=== PATIENT | female | born 1995 | race Caucasian/White ===

== ENCOUNTER 2016-11-08 17:55 | Emergency (ER) | payer OTHER, SELFPAY ==
[2016-11-08] MEDS ORDERED: Sodium Chloride 0.9% 1000 ML 1,000 ML IV STA (18:04)
[2016-11-08 18:05] VITALS: BP 127/71; PULSE 94; O2SAT 96
[2016-11-08] MEDS ORDERED: Sodium Chloride 0.9% 1000 ML 1,000 ML ONE (18:18)
--- NOTE | 2016-11-08 18:20 | ERPHSYRPT ---
- History of Present Illness Time Seen by Provider: 11/08/16 18:18 Historian: patient Exam Limitations: no limitations Patient Subjective Stated Complaint: abd pain for two days Triage Nursing Assessment: to room per self without difficulty. skin w/d, normal color. holding lower abd. bowel sounds normal. denies diarrhea. does have some nausea. Physician History: 21-year-old female came to the emergency room with complaining of left lower quadrant abdominal pains. She denies any nausea vomiting diarrhea or constipation. Her last menstrual period was last month. In the middle of the month. She denies any vagina bleeding. She also denies any urinary complaints. Timing/Duration: yesterday Activities at Onset: none Quality: cramping Abdominal Pain Onset Location: LLQ Pain Radiation: no radiation Severity of Pain-Max: mild Severity of Pain-Current: mild Modifying Factors: Improves With: nothing Associated Symptoms: denies symptoms Allergies/Adverse Reactions: No Known Drug Allergies Allergy (Verified 11/08/16 18:05) Hx Tetanus, Diphtheria Vaccination/Date Given: No Hx Influenza Vaccination/Date Given: No Hx Pneumococcal Vaccination/Date Given: No - Review of Systems Constitutional: No Fever, No Chills Eyes: No Symptoms Ears, Nose, & Throat: No Symptoms Respiratory: No Cough, No Dyspnea Cardiac: No Chest Pain, No Edema, No Syncope Abdominal/Gastrointestinal: Abdominal Pain (Left lower quadrant.), No Nausea, No Vomiting, No Diarrhea Genitourinary Symptoms: No Dysuria Musculoskeletal: No Back Pain, No Neck Pain Skin: No Rash Neurological: No Dizziness, No Focal Weakness, No Sensory Changes Psychological: No Symptoms Endocrine: No Symptoms All Other Systems: Reviewed and Negative - Past Medical History Pertinent Past Medical History: Yes Psycho-Social History: Depression - Past Surgical History Past Surgical History: Yes Female Surgical History: Section - Social History Smoking Status: Current some day smoker How long have you smoked: 1 Exposure to second hand smoke: Yes Drug Use: marijuana Patient Lives Alone: No - Female History Hx Last Menstrual Period: 10/21/16 - Nursing Vital Signs Nursing Vital Signs: Initial Vital Signs Temperature 98.3 F Temperature Source Oral Pulse Rate 94 Respiratory Rate 16 Blood Pressure [Right Arm] 127/71 Pain Intensity 7 - Physical Exam General Appearance: no apparent distress, alert Eye Exam: PERRL/EOMI, eyes nml inspection Ears, Nose, Throat Exam: normal ENT inspection, pharynx normal, moist mucous membranes Neck Exam: normal inspection, non-tender, supple, full range of motion Respiratory Exam: normal breath sounds, lungs clear, No respiratory distress Cardiovascular Exam: regular rate/rhythm, normal heart sounds Gastrointestinal/Abdomen Exam: soft, tenderness (minimal left lower quadrant tenderness), No mass Back Exam: normal inspection, normal range of motion, No CVA tenderness, No vertebral tenderness Extremity Exam: normal inspection, normal range of motion, pelvis stable Neurologic Exam: alert, oriented x 3, cooperative, normal mood/affect, nml cerebellar function, sensation nml, No motor deficits Skin Exam: normal color, warm, dry SpO2: 96 Oxygen Delivery: Room Air - Course Nursing assessment & vital signs reviewed: Yes Ordered Tests: Active Orders 24 hr Category Date Time Status AMYLASE Stat Lab 11/08/16 18:19 Completed CBC W DIFF Stat Lab 11/08/16 18:19 Completed CMP Stat Lab 11/08/16 18:19 Completed HCG QUALITATIVE,SERUM Stat Lab 11/08/16 18:20 Completed HCG,QUALITATIVE URINE Stat Lab 11/08/16 18:04 Uncollected LIPASE Stat Lab 11/08/16 18:19 Completed UA Stat Lab 11/08/16 18:55 Received Urine Triage Profile Stat Lab 11/08/16 18:55 Received Medication Summary Discontinued Medications Generic Name Dose Route Start Last Admin Trade Name Beth PRN Reason Stop Dose Admin Sodium Chloride 1,000 mls @ 999 mls/hr 11/08/16 18:04 11/08/16 18:21 Sodium Chloride 0.9% 1000 Ml IV 11/08/16 19:04 999 mls/hr .Q1H1M STA Administration Sodium Chloride Confirm 11/08/16 18:18 Sodium Chloride 0.9% 1000 Ml Administered 11/08/16 18:19 Dose 1,000 mls @ ud .ROUTE .[facility] Lab/Rad Data: Laboratory Result Diagrams 11/08/16 18:19 11/08/16 18:19 Laboratory Results 11/08/16 11/08/16 11/08/16 Range/Units 18:20 18:19 18:19 WBC 8.1 (4.0-10.5) K/mm3 RBC 4.71 (4.1-5.4) M/mm3 Hgb 14.1 (12.0-16.0) gm/dl Hct 42.3 (35-47) % MCV 89.8 (78-100) fl MCH 29.9 (26-32) pg MCHC 33.3 (32-36) g/dl RDW 12.8 (11.5-14.0) % Plt Count 259 (150-450) K/mm3 MPV 10.4 H (6-9.5) fl Gran % 71.1 H (36.0-66.0) % Lymphocytes % 17.3 L (24.0-44.0) % Monocytes % 7.9 (0.0-12.0) % Eosinophils % 3.3 (0.00-5.0) % Basophils % 0.4 (0.0-0.4) % Basophils # 0.03 (0-0.4) Sodium 143 (136-145) mEq/L Potassium 3.8 (3.5-5.1) mEq/L Chloride 106 (98-107) mEq/L Carbon Dioxide 26.0 (21-32) mEq/L Anion Gap 14.8 (5-15) MEQ/L BUN 10 (9-20) mg/dL Creatinine 0.77 (0.55-1.30) mg/dl Estimated GFR > 60 ML/MIN Glucose 118 H (70-110) MG/DL Calcium 9.1 (8.5-10.1) mg/dL Total Bilirubin 0.4 (0.2-1.0) mg/dL AST 25 (15-37) U/L ALT 42 (12-78) U/L Alkaline Phosphatase 49 (46-116) U/L Serum Total Protein 7.2 (6.4-8.2) gm/dL Albumin 3.9 (3.4-5.0) g/dL Amylase 41 (25-115) U/L Lipase 159 (73-393) U/L Serum , Qual NEGATIVE (Negative) - Progress Progress: improved Counseled pt/family regarding: lab results, diagnosis, need for follow-up - Departure Time of Disposition: 18:52 Departure Disposition: Home Clinical Impression: Abdominal pain in female patient Condition: Stable Critical Care Time: No Referrals: SANDIP MEZA [Primary Care Provider] - Instructions: Abdominal Pain-Adult Additional Instructions: ABDOMINAL PAIN 1. There are several different causes for abdominal pain, some of which may not be able to be identified on initial examination. 2. The important thing to remember is that bodily functions can change in a short period of time. If you notice any of the following symptoms, return to the emergency department or consult your doctor immediately: A. Worsening pain or no improvement in the next 12 hours. B. Increasing, severe abdominal pain C. Blood in stool D. Black stools E. Persistent vomiting F. Fever or chills or other symptoms Follow-up with your primary care physician tomorrow. Forms: Work/School Release Form
[2016-11-08 18:22] LABS: BASOPHIL % 0.4 % (0.0-0.4); Eosinophil % 3.3 % (0.00-5.0); Granulocytes % 71.1 % (36.0-66.0); Lymphocytes % 17.3 % (24.0-44.0); Mean Cell Volume 89.8 fl (78-100); Mean Corpuscular Hemoglobin 29.9 pg (26-32); Mean Platelet Volume 10.4 fl (6-9.5); Monocytes % 7.9 % (0.0-12.0); Platelet Count 259 K/mm3 (150-450); Red Blood Count 4.71 M/mm3 (4.1-5.4); Red Cell Distribution Width 12.8 % (11.5-14.0); White Blood Count 8.1 K/mm3 (4.0-10.5)
[2016-11-08 18:40] LABS: ALBUMIN 3.9 g/dL (3.4-5.0); ALKALINE PHOSPHATASE 49 U/L (46-116); ANION GAP 14.8 MEQ/L (5-15); BILIRUBIN,TOTAL 0.4 mg/dL (0.2-1.0); BLOOD UREA NITROGEN 10 mg/dL (9-20); CHLORIDE 106 mEq/L (98-107); Glucose 118 MG/DL (70-110); LIPASE 159 U/L (73-393); Potassium 3.8 mEq/L (3.5-5.1); SGOT/AST 25 U/L (15-37); SGPT/ALT 42 U/L (12-78); SODIUM 143 mEq/L (136-145); Total Protein 7.2 gm/dL (6.4-8.2)
[2016-11-08 19:11] LABS: COMPLETE URINE MICROSCOPIC? NO; Collection Type CLEAN CATCH
== END 2016-11-08 19:20 | disposition home or self-care (01) ==
LOC: ED 17:55
DX: R10.32 Left lower quadrant pain (principal)
CPT/HCPCS: 36000; 36415; 80053; 80307; 81002; 82150; 83690; 84703; 85025; 96360; 99283; 99284

== ENCOUNTER 2017-07-17 19:15 | Emergency (ER) | payer OTHER ==
[2017-07-17] MEDS ORDERED: Sodium Chloride 0.9% 1000 ML 1,000 ML IV STA (19:59)
--- NOTE | 2017-07-17 20:04 | ERPHSYRPT ---
- History of Present Illness Time Seen by Provider: 07/17/17 19:57 Historian: patient Exam Limitations: no limitations Patient Subjective Stated Complaint: pt states she has been having abd pain, increasing in intensity for the past month. states she would like a test also Triage Nursing Assessment: pt alert and oriented, answers qeustions approp. pt ambj with steady gait noted. respiraiosn nonlabored with lungs cta. abd soft and nontedner with bowel sounds in all 4 quads Physician History: This is a 22-year-old white female with history of depression and anxiety and irregular periods. She arrives with complaint of left the lower and suprapubic pain crampy in nature off and on for a month and a half. She states she is concerned she might be . Past medical history includes depression, anxiety, irregular periods. Past surgical history includes . Timing/Duration: other (symptoms for a month and a half) Activities at Onset: none Quality: cramping, sharpness Abdominal Pain Onset Location: RUQ, suprapubic, flank (right flank) Pain Radiation: flank (right flank) Severity of Pain-Max: mild Severity of Pain-Current: mild Modifying Factors: Improves With: nothing Associated Symptoms: back, No chest pain, No diaphoresis, No diarrhea, No fever/ chills, No fatigue, No headache, No heartburn, No loss of appetite, No nausea, No neck pain, No rash, No shortness of breath, No syncope, No vomiting, No weakness Previous symptoms: no prior history Allergies/Adverse Reactions: No Known Drug Allergies Allergy (Verified 07/17/17 19:39) Home Medications: No Reportable Medications [No Reported Medications] 07/17/17 [History] Hx Tetanus, Diphtheria Vaccination/Date Given: No Hx Influenza Vaccination/Date Given: No Hx Pneumococcal Vaccination/Date Given: No Immunizations Up to Date: No - Review of Systems Constitutional: No Fever, No Chills Eyes: No Symptoms Ears, Nose, & Throat: No Symptoms Respiratory: No Cough, No Dyspnea Cardiac: No Chest Pain, No Edema, No Syncope Abdominal/Gastrointestinal: Abdominal Pain, No Nausea, No Vomiting, No Diarrhea , No Constipation, No Hematemesis, No Hematochezia, No Melena, No Dysphagia, No Appetite Changes Genitourinary Symptoms: No Dysuria Musculoskeletal: No Back Pain, No Neck Pain Skin: No Rash Neurological: No Dizziness, No Focal Weakness, No Sensory Changes Psychological: No Symptoms Endocrine: No Symptoms All Other Systems: Reviewed and Negative (that I didn't really appreciate mu) - Past Medical History Pertinent Past Medical History: Yes Psycho-Social History: Anxiety, Depression Other Medical History: irreg periods - Past Surgical History Past Surgical History: Yes Female Surgical History: Section - Social History Smoking Status: Never smoker How long have you smoked: 1 Exposure to second hand smoke: Yes Drug Use: none, marijuana Patient Lives Alone: No - Female History Hx Last Menstrual Period: 2 mos ago - Nursing Vital Signs Nursing Vital Signs: Initial Vital Signs Temperature 98.0 F 07/17/17 19:33 Pulse Rate 94 H 07/17/17 19:33 Respiratory Rate 18 07/17/17 19:33 Blood Pressure 119/76 07/17/17 19:33 O2 Sat by Pulse Oximetry 98 07/17/17 19:33 Pain Scale Pain Intensity 7 - Physical Exam General Appearance: other (obese white female does not appear to be in acute distress) Eye Exam: PERRL/EOMI, eyes nml inspection Ears, Nose, Throat Exam: normal ENT inspection, pharynx normal, moist mucous membranes Neck Exam: normal inspection, non-tender, supple, full range of motion Respiratory Exam: normal breath sounds, lungs clear, No respiratory distress Cardiovascular Exam: regular rate/rhythm, normal heart sounds Gastrointestinal/Abdomen Exam: soft, tenderness ( is with him him), No mass Back Exam: normal inspection, normal range of motion, No CVA tenderness, No vertebral tenderness Extremity Exam: normal inspection, normal range of motion, pelvis stable Neurologic Exam: alert, oriented x 3, cooperative, normal mood/affect, nml cerebellar function, sensation nml, No motor deficits Skin Exam: normal color, warm, dry SpO2 Interpretation: normal (98%with him) SpO2: 98 Oxygen Delivery: Room Air - Course Nursing assessment & vital signs reviewed: Yes - CT Exams Abdomen/Pelvis CT Interpretation: Tele-radiologist Report (CT abdomen and pelvis: Impression: 1. No renal or ureteral stones no hydronephrosis. Urinary bladder appears normal. 2. Gallbladder and appendix are normal. 3. Question of mild thickening of the wall of the the sigmoid colon versus artifact.) Ordered Tests: Active Orders 24 hr Category Date Time Status IV Insertion STAT Care 07/17/17 19:59 Active ABDOMEN AND PELVIS W/0 CONTRAS [CT] Stat Exams 07/17/17 21:14 Taken AMYLASE Stat Lab 07/17/17 20:20 Completed CBC W DIFF Stat Lab 07/17/17 20:20 Completed CMP Stat Lab 07/17/17 20:20 Completed HCG QUALITATIVE,SERUM Stat Lab 07/17/17 20:20 Completed LIPASE Stat Lab 07/17/17 20:20 Completed UA W/ MICROSCOPIC Stat Lab 07/17/17 20:20 Completed Medication Summary Discontinued Medications Generic Name Dose Route Start Last Admin Trade Name Freq PRN Reason Stop Dose Admin Sodium Chloride 1,000 mls @ 999 mls/hr 07/17/17 19:59 07/17/17 20:22 Sodium Chloride 0.9% 1000 Ml IV 07/17/17 20:59 999 mls/hr .Q1H1M STA Administration Sodium Chloride Confirm 07/17/17 20:20 Sodium Chloride 0.9% 1000 Ml Administered 07/17/17 20:21 Dose 1,000 mls @ ud .ROUTE .[facility] Lab/Rad Data: Laboratory Result Diagrams 07/17/17 20:20 07/17/17 20:20 Laboratory Results 07/17/17 07/17/17 07/17/17 Range/Units 20:20 20:20 20:20 WBC 8.0 (4.0-10.5) K/mm3 RBC 4.03 L (4.1-5.4) M/mm3 Hgb 12.0 (12.0-16.0) gm/dl Hct 36.6 (35-47) % MCV 90.8 (78-100) fl MCH 29.7 (26-32) pg MCHC 32.8 (32-36) g/dl RDW 12.7 (11.5-14.0) % Plt Count 279 (150-450) K/mm3 MPV 10.2 H (6-9.5) fl Gran % 66.5 H (36.0-66.0) % Lymphocytes % 22.6 L (24.0-44.0) % Monocytes % 6.0 (0.0-12.0) % Eosinophils % 4.4 (0.00-5.0) % Basophils % 0.5 (0.0-0.4) % Basophils # 0.04 (0-0.4) Sodium 141 (136-145) mEq/L Potassium 3.6 (3.5-5.1) mEq/L Chloride 104 (98-107) mEq/L Carbon Dioxide 30.6 (21-32) mEq/L Anion Gap 10.1 (5-15) MEQ/L BUN 9 (9-20) mg/dL Creatinine 0.72 (0.55-1.30) mg/dl Estimated GFR > 60 ML/MIN Glucose 110 (70-110) MG/DL Calcium 9.1 (8.5-10.1) mg/dL Total Bilirubin 0.30 (0.2-1.0) mg/dL AST 14 L (15-37) U/L ALT 21 (12-78) U/L Alkaline Phosphatase 39 L (46-116) U/L Serum Total Protein 7.2 (6.4-8.2) gm/dL Albumin 3.8 (3.4-5.0) g/dL Amylase 47 (25-115) U/L Lipase 188 (73-393) U/L Serum , Qual NEGATIVE (Negative) Ur Collection Type Urine Color (YELLOW) Urine Appearance (CLEAR) Urine pH (5-6) Ur Specific Maury (1.005-1.025) Urine Protein (Negative) Urine Ketones (NEGATIVE) Urine Blood (0-5) Aramis/ul Urine Nitrite (NEGATIVE) Urine Bilirubin (NEGATIVE) Urine Urobilinogen (0-1) mg/dL Ur Leukocyte Esterase (NEGATIVE) Urine Microscopic RBC (0-2) /HPF Urine Microscopic WBC (0-5) /HPF Ur Epithelial Cells (FEW) /HPF Urine Bacteria (NEGATIVE) /HPF Urine Culture Reflexed (NO) Urine Glucose (NEGATIVE) mg/dL Specimen Received 07/17/17 Range/Units 20:20 WBC (4.0-10.5) K/mm3 RBC (4.1-5.4) M/mm3 Hgb (12.0-16.0) gm/dl Hct (35-47) % MCV (78-100) fl MCH (26-32) pg MCHC (32-36) g/dl RDW (11.5-14.0) % Plt Count (150-450) K/mm3 MPV (6-9.5) fl Gran % (36.0-66.0) % Lymphocytes % (24.0-44.0) % Monocytes % (0.0-12.0) % Eosinophils % (0.00-5.0) % Basophils % (0.0-0.4) % Basophils # (0-0.4) Sodium (136-145) mEq/L Potassium (3.5-5.1) mEq/L Chloride (98-107) mEq/L Carbon Dioxide (21-32) mEq/L Anion Gap (5-15) MEQ/L BUN (9-20) mg/dL Creatinine (0.55-1.30) mg/dl Estimated GFR ML/MIN Glucose (70-110) MG/DL Calcium (8.5-10.1) mg/dL Total Bilirubin (0.2-1.0) mg/dL AST (15-37) U/L ALT (12-78) U/L Alkaline Phosphatase (46-116) U/L Serum Total Protein (6.4-8.2) gm/dL Albumin (3.4-5.0) g/dL Amylase (25-115) U/L Lipase (73-393) U/L Serum , Qual (Negative) Ur Collection Type CLEAN CATCH Urine Color LT.YELLOW (YELLOW) Urine Appearance SLIGHTLY CLOUDY (CLEAR) Urine pH 9.0 (5-6) Ur Specific Maury 1.000 (1.005-1.025) Urine Protein NEGATIVE (Negative) Urine Ketones NEGATIVE (NEGATIVE) Urine Blood 250 (0-5) Aramis/ul Urine Nitrite NEGATIVE (NEGATIVE) Urine Bilirubin NEGATIVE (NEGATIVE) Urine Urobilinogen NORMAL (0-1) mg/dL Ur Leukocyte Esterase NEGATIVE (NEGATIVE) Urine Microscopic RBC 15-25 (0-2) /HPF Urine Microscopic WBC 0-2 (0-5) /HPF Ur Epithelial Cells FEW (FEW) /HPF Urine Bacteria RARE (NEGATIVE) /HPF Urine Culture Reflexed NO (NO) Urine Glucose NEGATIVE (NEGATIVE) mg/dL Specimen Received 07/17/17 2020 - Progress Progress: improved Progress Note: 07/17/17 21:22 22-year-old white female arrives with complaint of multiple half of lower abdominal pain. She was concerned that she might be she has nod vaginal discharge no bleeding. Labs are remarkable for a positive blood in the patient's urine 15-25 red cells otherwise negative Will go ahead and obtain CT of the patient's abdomen to rule out kidney stone hCG is negative 07/17/17 22:[address] abdomen: No renal or ureteral stones, no hydronephrosis, urinary bladder appears to be normal. Gallbladder and appendix are normal. Question of mild thickening of the wall of sigmoid colon versus artifact from incomplete extension. Patient feeling better she wants to go home she actually pulled her own IV out. She does not want any pain medicines for home Will discharge - Departure Time of Disposition: 22:28 Departure Disposition: Home Clinical Impression: microcytic hematuria Abdominal pain Qualifiers: Abdominal location: unspecified location Qualified Code(s): R10.9 - Unspecified abdominal pain Condition: Fair Critical Care Time: No Referrals: YAQUELIN MILTON MD [Primary Care Provider] - Instructions: Abdominal Pain-Adult Additional Instructions: Return home. Plenty of fluids clear fluids only 24-48 hours if abdominal pain. Tylenol every 4 hours or Motrin every 6 hours as needed for pain. Follow-up with your family doctor. Return for acute distress or for severe symptoms.
[2017-07-17] MEDS ORDERED: Sodium Chloride 0.9% 1000 ML 1,000 ML ONE (20:20)
[2017-07-17 20:24] LABS: BASOPHIL % 0.5 % (0.0-0.4); Eosinophil % 4.4 % (0.00-5.0); Granulocytes % 66.5 % (36.0-66.0); Lymphocytes % 22.6 % (24.0-44.0); Mean Cell Volume 90.8 fl (78-100); Mean Corpuscular Hemoglobin 29.7 pg (26-32); Mean Platelet Volume 10.2 fl (6-9.5); Platelet Count 279 K/mm3 (150-450); Red Blood Count 4.03 M/mm3 (4.1-5.4); Red Cell Distribution Width 12.7 % (11.5-14.0)
[2017-07-17 20:32] LABS: Bilirubin NEGATIVE (NEGATIVE); Blood 250 Ery/ul (0-5); Collection Type CLEAN CATCH; Glucose NEGATIVE (NEGATIVE); Leukocyte Esterase NEGATIVE (NEGATIVE)
[2017-07-17 20:33] LABS: COMPLETE URINE MICROSCOPIC? YES; WBC 0-2 /HPF (0-5)
[2017-07-17 20:34] LABS: ADD URINE CULTURE? NO (NO); Bacteria RARE /HPF (NEGATIVE); Epithelial Cells FEW /HPF (FEW)
[2017-07-17 20:35] VITALS: BP 99/51
[2017-07-17 20:47] LABS: ALBUMIN 3.8 g/dL (3.4-5.0); ALKALINE PHOSPHATASE 39 U/L (46-116); ANION GAP 10.1 MEQ/L (5-15); BLOOD UREA NITROGEN 9 mg/dL (9-20); CHLORIDE 104 mEq/L (98-107); Carbon Dioxide 30.6 mEq/L (21-32); Glucose 110 MG/DL (70-110); LIPASE 188 U/L (73-393); Potassium 3.6 mEq/L (3.5-5.1); SGOT/AST 14 U/L (15-37); SGPT/ALT 21 U/L (12-78); SODIUM 141 mEq/L (136-145); Total Protein 7.2 gm/dL (6.4-8.2)
[2017-07-17 22:35] VITALS: PULSE 92; O2SAT 100
--- NOTE | 2017-07-18 08:59 | XRAY ---
Indication: Right flank pain and hematuria. Multiple contiguous axial images obtained through the abdomen and pelvis without contrast as ordered. Comparison: None. Lung bases are clear. Heart is not enlarged. Noncontrasted stomach and bowel loops appear nonobstructed. Normal appendix. Mild sigmoid wall thickening without stranding either incomplete distention versus mild colitis. No free fluid/air. Remaining liver, gallbladder, pancreas, spleen, adrenal glands, kidneys, ureters, bladder, uterus, and aorta appear unremarkable for noncontrast exam. Osseous structures intact. Impression: 1. Mild sigmoid wall thickening without stranding either incomplete distention versus mild colitis. Correlate clinically. 2. Remaining CT abdomen/pelvis without contrast exam is negative. Comment: Preliminary interpretation was made by [facility]. No discrepancy. CTDI 23.68
== END 2017-07-17 22:35 | disposition home or self-care (01) ==
LOC: ED 19:15
DX: R10.9 Unspecified abdominal pain (principal); R31.29 Other microscopic hematuria
CPT/HCPCS: 36000; 36415; 74176; 80053; 81000; 82150; 83690; 84703; 85025; 96360; 99284